=== PATIENT | female | born 1960 | race Caucasian/White ===

== ENCOUNTER 2018-07-19 12:23 | Outpatient (REF) | payer BC, SELFPAY ==
--- NOTE | 2018-07-19 12:00 | ENDOMET_PTH ---
PATIENT: Kellee Dodge LOC: [facility] U#:[id number] AGE/SX: 58/F ROOM: RE07/19/[address]: Elba Hay : 1960 BED: DIS: 07/19/2018 SPEC #: [id number] RECD: 07/20/18 12:48 STATUS: GERMAN REQ #: [id number] ELINA: 07/19/18 12:[address]: Elba Goldberg DEPT: Surgical Specimen RECD BY: Tegan Zuniga ENTERED: 07/20/18 12:49 SP TYPE: Endomet OTHR DR: Connie Camp Tissues: 1 - ENDOMETRIUM BX/CELESTINO Procedures: GROSS AND MICRO LEVEL 4 Comments: [id number]
--- NOTE | 2018-07-19 12:00 | PAPFT_PTH ---
PATIENT: Kellee Dodge LOC: [facility] U#:[id number] AGE/SX: 58/F ROOM: RE07/19/[address]: Elba Hay : 1960 BED: DIS: 07/19/2018 SPEC #: [id number] RECD: 07/20/18 13:06 STATUS: GERMAN GEORGES #: [id number] ELINA: 07/19/18 12:[address]: Elba Goldberg DEPT: [facility] Cytology RECD BY: Tegan Zuniga ENTERED: 07/20/18 13:06 SP TYPE: PAPFT DESTIN DR: Connie Camp Tissues: 1 - CX/ENDOCX FOR PAP SMEARS Procedures: PAP THIN PREP/[facility] Screening HPV DNA PROBE Comments: [id number]
[2018-07-20 08:04] LABS: HGB 14.6 g/dL (12.0-15.5); Mean Corp. HGB Concentration 32.4 g/dL (32.0-36.0); Mean Corpuscular Hemoglobin 30.5 pg (27.0-33.0); Mean Corpuscular Volume 94.1 fL (80-95); Mean Platelet Volume 10.7 fL (8.0-11.0); Platelet Count 245 x1000/uL (130-400); RBC 4.78 m/cumm (4.00-5.20); RBC Distribution Width 13.3 % (11.7-14.6); White Blood Cell Count 9.43 k/cumm (4.4-10.8)
[2018-07-20 08:15] LABS: Hemoglobin A1C 8.9 % (4.5-6.2)
[2018-07-20 08:35] LABS: ALT 78 U/L (12-78); AST 31 U/L (15-37); Albumin 3.6 g/dL (3.4-5.0); Alkaline Phosphatase 121 U/L (46-116); Anion Gap 9.5 mmol/L (3-11); BUN 8 mg/dL (7-18); Bilirubin, Total 0.4 mg/dL (0.2-1.0); CO2 28.5 mmol/L (21.0-32.0); Calcium 8.9 mg/dL (8.5-10.1); Chloride 101 mmol/L (98-107); Cholesterol 233 mg/dL (50-200); Glucose 215 mg/dL (70-100); HDL Cholesterol 52 mg/dL (40-60); LDL CHOLESTEROL 162 mg/dL (<100); Potassium 3.9 mmol/L (3.5-5.1); Sodium 139 mmol/L (136-145); TSH 2.89 uIU/mL (0.358-3.74); Total Protein 7.5 g/dL (6.4-8.2); Triglyceride 107 mg/dL (30-150)
== END 2018-07-19 12:43 ==
LOC: NCHCN 12:23
PROVIDERS: PCP Family Medicine; Visit Provider Nurse Practitioner Family
DX: N85.8 Other specified noninflammatory disorders of uterus (principal); N95.0 Postmenopausal bleeding; Z12.4 Encounter for screening for malignant neoplasm of cervix; Z11.51 Encounter for screening for human papillomavirus (HPV); R73.02 Impaired glucose tolerance (oral); R03.0 Elevated blood-pressure reading, without diagnosis of hypertension; E66.01 Morbid (severe) obesity due to excess calories
CPT/HCPCS: 80053; 80061; 83721; 85027; 88142; 88305; 83036; 84443; 87624

== ENCOUNTER 2018-11-02 09:16 | Outpatient (REF) | payer BC, SELFPAY ==
[2018-11-02 21:20] LABS: Calculated LDL 144 mg/dL; Cholesterol 203 mg/dL (50-200); HDL Cholesterol 44 mg/dL (40-60); Triglyceride 75 mg/dL (30-150)
[2018-11-02 21:37] LABS: Hemoglobin A1C 6.7 % (4.5-6.2)
== END 2018-11-02 09:36 ==
LOC: NCHCN 09:16
PROVIDERS: PCP Family Medicine; Visit Provider Family Medicine
DX: E11.9 Type 2 diabetes mellitus without complications (principal); R03.0 Elevated blood-pressure reading, without diagnosis of hypertension
CPT/HCPCS: 80061; 83721; 83036

== ENCOUNTER 2019-10-13 20:17 | Outpatient (REF) | payer BC, SELFPAY ==
[2019-10-13 20:34] LABS: COMMENT (LAB VIEW ONLY) 131.54 mg/dL; Microalb ug/mg Crea 5.9 ug/mg Cr
== END 2019-10-13 20:37 ==
LOC: NCHCN 20:17
PROVIDERS: PCP Family Medicine; Visit Provider Registered Nurse
DX: E11.9 Type 2 diabetes mellitus without complications (principal)
CPT/HCPCS: 82043; 82570

== ENCOUNTER 2023-03-02 14:41 | Outpatient (REF) | payer BC, SELFPAY ==
[2023-03-02 22:33] LABS: ALT 37 U/L (14-59); AST 20 U/L (15-37); Albumin 3.5 g/dL (3.4-5.0); Alkaline Phosphatase 100 U/L (46-116); Anion Gap 7.5 mmol/L (3-11); BUN 11 mg/dL (7-18); Bilirubin, Total 0.4 mg/dL (0.2-1.0); CO2 27.5 mmol/L (21.0-32.0); CREATININE 0.7 mg/dL (0.55-1.02); Calcium 9.2 mg/dL (8.5-10.1); Calculated LDL 173 mg/dL (<100); Chloride 104 mmol/L (98-107); Cholesterol 244 mg/dL (<200); Estimated GFR 97.12 (mL/min/1.73m2); Glucose 190 mg/dL (74-106); HDL Cholesterol 58 mg/dL (40-60); Potassium 4.3 mmol/L (3.5-5.1); Sodium 139 mmol/L (136-145); Total Protein 7.8 g/dL (6.4-8.2); Triglyceride 66 mg/dL (<150)
[2023-03-02 22:36] LABS: Creatinine,Urine 118.85 mg/dL
[2023-03-02 22:39] LABS: COMMENT (LAB VIEW ONLY) 117.71 mg/dL; Microalb ug/mg Crea 8.1 ug/mg Cr
== END 2023-03-02 14:42 | disposition home or self-care (01) ==
LOC: NCHCN 14:41
PROVIDERS: PCP Family Medicine; Visit Provider Family Medicine
DX: E11.9 Type 2 diabetes mellitus without complications (principal); K76.0 Fatty (change of) liver, not elsewhere classified; E88.819 Insulin resistance, unspecified; E66.9 Obesity, unspecified; G47.33 Obstructive sleep apnea (adult) (pediatric)
CPT/HCPCS: 80053; 80061; 82043; 82565; 82570

== ENCOUNTER 2023-07-31 13:14 | Outpatient (REF) | payer BC, SELFPAY ==
[2023-07-31 14:26] LABS: Anion Gap 10.2 mmol/L (3-11); BUN 11 mg/dL (7-18); CO2 24.8 mmol/L (21.0-32.0); CREATININE 0.5 mg/dL (0.55-1.02); Calcium 9.1 mg/dL (8.5-10.1); Chloride 106 mmol/L (98-107); Estimated GFR 104.67 (mL/min/1.73m2); Glucose 148 mg/dL (74-106); Sodium 141 mmol/L (136-145)
[2023-07-31 14:53] LABS: COMMENT (LAB VIEW ONLY) 124.95 mg/dL
== END 2023-07-31 13:15 | disposition home or self-care (01) ==
LOC: NCHCN 13:14
PROVIDERS: PCP Family Medicine; Visit Provider Registered Nurse
DX: I10 Essential (primary) hypertension (principal); E11.9 Type 2 diabetes mellitus without complications
CPT/HCPCS: 80048; 82043; 82570

== ENCOUNTER 2023-09-01 16:20 | Outpatient (REF) | payer BC, SELFPAY ==
[2023-09-01 21:09] LABS: Calculated LDL 77 mg/dL (<100); Cholesterol 156 mg/dL (<200); HDL Cholesterol 69 mg/dL (40-60); TSH (W/Ref FT4) 2.03 uIU/mL (0.36-3.74); Triglyceride 54 mg/dL (<150)
== END 2023-09-01 16:21 | disposition home or self-care (01) ==
LOC: NCHCN 16:20
PROVIDERS: PCP Family Medicine; Visit Provider Family Medicine
DX: R63.4 Abnormal weight loss (principal); E78.5 Hyperlipidemia, unspecified
CPT/HCPCS: 80061; 84443

== ENCOUNTER 2024-11-01 17:41 | Outpatient (REF) | payer MEDICARE, SELFPAY ==
--- NOTE | 2024-11-01 13:30 | PAPFT_PTH ---
PATIENT: Kellee Dodge LOC: [facility]S [facility]CLUDE [facility] BEDS AT [facility] U#:[id number] AGE/SX: 64/F ROOM: RE11/01/[address]: Connie Camp : 1960 BED: DIS: 11/01/2024 SPEC #: [id number] RECD: 11/02/24 12:51 STATUS: GERMAN REQ #: [id number] ELINA: 11/01/24 13:[address]: Connie Camp DEPT: [facility] Cytology RECD BY: Tegan Zuniga Tissues: 1 - CX/ENDOCX FOR PAP SMEARS Procedures: PAP THIN PREP/[facility] Screening HPV DNA PROBE Comments: [id number] (HPV 16 & 18/45)
[2024-11-01 21:30] LABS: COMMENT (LAB VIEW ONLY) 264.45 mg/dL; Microalb ug/mg Crea 10.3 ug/mg Cr
== END 2024-11-01 17:42 | disposition home or self-care (01) ==
LOC: NCHCN 17:41
PROVIDERS: PCP Family Medicine; Visit Provider Family Medicine
DX: Z12.4 Encounter for screening for malignant neoplasm of cervix (principal); E11.9 Type 2 diabetes mellitus without complications
CPT/HCPCS: 88142; 82043; 82570; 87624